=== PATIENT | female | born 1985 | race Caucasian/White ===

== ENCOUNTER 2020-07-17 08:45 | Observation (INO) | payer OTHER ==
[~2020-07-17] VITALS: Ht 156 cm; Wt 77.1 kg
[~2020-07-17 08:45] MED LIST: DSS100 PO; FERR-89 PO; IBUP-2070 PO; PERCT PO; PREN1TAB80 PO
[2020-07-17 09:12] VITALS: BP 109/67
[2020-07-17] MEDS ORDERED: CALC-1038 PO (09:31)
== END 2020-07-17 10:30 | disposition home or self-care (01) ==
LOC: 4S 08:45 → UNDOADMOB 08:45
PROVIDERS: ADMIT Obstetrics & Gynecology; ATTEND Obstetrics & Gynecology
DX: O42.92 Full-term premature rupture of membranes, unspecified as to length of time between rupture and onset of labor (principal); Z3A.38 38 weeks gestation of pregnancy
CPT/HCPCS: 59025; 81001; 99219

== ENCOUNTER 2020-07-20 14:37 | Observation (INO) | payer OTHER ==
[~2020-07-20] VITALS: Ht 157.5 cm; Wt 78.7 kg
[~2020-07-20 14:37] MED LIST changes: +CALC-1038 PO
[2020-07-20 14:46] VITALS: BP 109/62
== END 2020-07-20 15:25 | disposition home or self-care (01) ==
LOC: 4S 14:37
PROVIDERS: ADMIT Obstetrics & Gynecology; ATTEND Obstetrics & Gynecology
DX: O42.92 Full-term premature rupture of membranes, unspecified as to length of time between rupture and onset of labor (principal); Z3A.38 38 weeks gestation of pregnancy
CPT/HCPCS: 59025; 99219

== ENCOUNTER 2020-07-22 09:15 | Inpatient (IN) | payer OTHER ==
[~2020-07-22] VITALS: Ht 156 cm; Wt 77.1 kg
[~2020-07-22 09:15] MED LIST changes: +CITRIC ACID/SODIUM CITRATE 30 ML SOLUTION UDCUP PO ONE; +METOCLOPRAMIDE HCL 5 MG/ML 2 ML VIAL IVP ONE; +RINGERS SOLUTION,LACTATED 1,000 ML IV ONE
[2020-07-22 09:53] VITALS: BP 105/66
[2020-07-22 10:01] LABS: BASOPHILS % (AUTO) 0.4 % (0.0-2.0); EOSINOPHILS % (AUTO) 0.5 % (1.0-6.0); HEMATOCRIT 38.6 % (36-46); HEMOGLOBIN 12.9 g/dL (12.0-16.0); LYMPHOCYTES # (AUTO) 1.7 K/uL (1.0-4.8); LYMPHOCYTES % (AUTO) 15.1 % (22.0-44.0); MEAN CORPUSCULAR HEMOGLOBIN 28.9 pg (26.0-34.0); MEAN CORPUSCULAR HGB CONC 33.4 G/dL (31.0-37.0); MEAN CORPUSCULAR VOLUME 87 fL (80-100); MONOCYTES # (AUTO) 0.8 K/uL (0.1-1.0); NEUTROPHILS # (AUTO) 8.9 K/uL (1.8-7.7); PLATELET COUNT (AUTO) 314 K/uL (150-450); RED BLOOD CELL COUNT(AUTO) 4.45 MIL/uL (4.00-5.20); RED CELL DISTRIBUTION WIDTH 13.3 % (11.5-14.5)
[2020-07-22] MEDS: ETHYL ALCOHOL 62% ANTISEPTIC NASAL INHALANT 0.6 ML AMPUL NASAL SCH (10:31)
[2020-07-22] MEDS ORDERED: NALOXONE HCL 0.4 MG/ML VIAL IVP PRN (11:45)
[2020-07-22] MEDS ORDERED: NALBUPHINE HCL 10 MG/ML VIAL IVP PRN ×2 (11:45)
[2020-07-22] MEDS ORDERED: DiphenhydrAMINE HCL 50 MG/ML VIAL IVP PRN (11:45)
[2020-07-22] MEDS ORDERED: MORPHINE SULFATE 10 MG/ML SYRINGE IVP PRN (11:45)
[2020-07-22] MEDS ORDERED: FentaNYL CITRATE PF 100 MCG/2 ML VIAL IVP PRN (11:45)
[2020-07-22] MEDS ORDERED: ONDANSETRON HCL 4 MG/2 ML VIAL IVP PRN ×2 (11:45→13:00)
[2020-07-22] MEDS ORDERED: ACETAMINOPHEN 1000 MG/ISO-OSM 100 ML IV ONE (11:48)
[2020-07-22] MEDS ORDERED: BUPIVACAINE HCL/DEX-WATER/PF 0.75% 2 ML AMP ITH ONE (11:48)
[2020-07-22] MEDS ORDERED: MORPHINE SULFATE/PF 1 MG/ML 10 ML AMP ONE (11:48)
[2020-07-22] MEDS ORDERED: FentaNYL CITRATE PF 100 MCG/2 ML VIAL ONE ×2 (11:48→14:18)
[2020-07-22 11:51] LABS: COVID AG,FIA SOURCE NASOPHARYNGEAL
[2020-07-22] MEDS ORDERED: OXYTOCIN 10 UNITS/ML VIAL IM ONE (12:00)
[2020-07-22] MEDS ORDERED: EPHEDrine SULFATE 50 MG/ML VIAL IM ONE (12:00)
[2020-07-22] MEDS ORDERED: DEXAMETHASONE SOD PHOS 4 MG/ML VIAL IVP ONE (12:00)
[2020-07-22] MEDS ORDERED: ONDANSETRON HCL 4 MG/2 ML VIAL IVP ONE (12:00)
[2020-07-22] MEDS ORDERED: LANOLIN 7 GM OINTMENT TP PRN (13:45)
[2020-07-22] MEDS ORDERED: ACETAMINOPHEN/CODEINE 300-30 MG TABLET PO PRN (13:45)
[2020-07-22] MEDS: FentaNYL CITRATE PF 100 MCG/2 ML VIAL IVP PRN ×2 (14:25→15:07)
[2020-07-22] MEDS ORDERED: OXYGEN THERAPY IH SCH ×2 (20:00)
[2020-07-22] MEDS ORDERED: ETHYL ALCOHOL 62% ANTISEPTIC NASAL INHALANT 0.6 ML AMPUL NASAL SCH (21:00)
[2020-07-22] MEDS: DEXTROSE 5%-0.45% SODIUM CHL 1,000 ML IV SCH (21:05)
[2020-07-22] MEDS: ACETAMINOPHEN 1000 MG/ISO-OSM 100 ML IV SCH (21:08)
[2020-07-23] MEDS: DEXTROSE 5%-0.45% SODIUM CHL 1,000 ML IV SCH ×2 (01:02→05:08)
[2020-07-23] MEDS: ACETAMINOPHEN 1000 MG/ISO-OSM 100 ML IV SCH (05:04)
[2020-07-23] MEDS: MAGNESIUM HYDROXIDE SUSPENSION 30 ML UDCUP PO SCH ×2 (08:35→22:20)
[2020-07-23] MEDS: IBUPROFEN 800 MG TABLET PO SCH ×3 (08:36→22:20)
[2020-07-23] MEDS: ACETAMINOPHEN/CODEINE 300-30 MG TABLET PO PRN (10:02)
[2020-07-24] MEDS: IBUPROFEN 800 MG TABLET PO SCH ×4 (04:00→22:43)
[2020-07-24] MEDS: MAGNESIUM HYDROXIDE SUSPENSION 30 ML UDCUP PO SCH ×2 (08:33→22:43)
[2020-07-24] MEDS ORDERED: SENNA/DOCUSATE SODIUM 8.6-50 MG TABLET PO ONE (10:00)
[2020-07-24] MEDS: ACETAMINOPHEN/CODEINE 300-30 MG TABLET PO PRN (14:11)
[2020-07-24] MEDS: ETHYL ALCOHOL 62% ANTISEPTIC NASAL INHALANT 0.6 ML AMPUL NASAL SCH (15:58)
[2020-07-25] MEDS: IBUPROFEN 800 MG TABLET PO SCH ×2 (04:36→11:16)
[2020-07-25] MEDS: ETHYL ALCOHOL 62% ANTISEPTIC NASAL INHALANT 0.6 ML AMPUL NASAL SCH (04:37)
[2020-07-25] MEDS: MAGNESIUM HYDROXIDE SUSPENSION 30 ML UDCUP PO SCH (09:30)
[2020-07-25] MEDS: ACETAMINOPHEN/CODEINE 300-30 MG TABLET PO PRN (09:30)
[2020-07-25] MEDS ORDERED: IBUP-2071 PO (09:37)
== END 2020-07-25 12:10 | disposition home or self-care (01) | DRG 785 ==
LOC: 4S 09:15 → OBSVTOIN 09:15 → 4S 07-24 08:50
PROVIDERS: ADMIT Obstetrics & Gynecology; ATTEND Obstetrics & Gynecology
PROC: 10D00Z1 Extraction of Products of Conception, Low, Open Approach (ICD-10-PCS; principal; 2020-07-22)
PROC: 0UB70ZZ Excision of Bilateral Fallopian Tubes, Open Approach (ICD-10-PCS; 2020-07-22)
DX: O34.211 Maternal care for low transverse scar from previous cesarean delivery (principal); Z3A.39 39 weeks gestation of pregnancy; Z37.0 Single live birth; Z30.2 Encounter for sterilization; Z20.822 Contact with and (suspected) exposure to COVID-19
CPT/HCPCS: 85025; 86850; 86900; 86901; 86923; 87081; 87426; 88302; J0131; J0690; J1100; J2405; J2590; J2765; J3010; J3490; J7120